=== PATIENT | female | born 1995 | race Two or more races ===

== ENCOUNTER 2018-09-15 07:13 | Emergency (ER) | payer OTHER ==
[~2018-09-15] VITALS: Ht 149.9 cm; Wt 62.6 kg
== END 2018-09-15 16:28 | disposition home or self-care (01) ==
LOC: ER 07:13
DX: K52.9 Noninfective gastroenteritis and colitis, unspecified (principal)

== ENCOUNTER 2018-12-27 08:28 | Outpatient (CLI) | payer OTHER | END 2018-12-27 15:00 | disposition home or self-care (01) | LOC: LAB 08:28 | DX: D68.0 Von Willebrand disease (principal); K82.8 Other specified diseases of gallbladder; D50.8 Other iron deficiency anemias; D51.8 Other vitamin B12 deficiency anemias; I10 Essential (primary) hypertension; D68.8 Other specified coagulation defects ==

== ENCOUNTER → 2018-12-27 | Outpatient (CLI) | payer OTHER | END | disposition home or self-care (01) | LOC: NUCLEAR 09:00 | DX: D68.0 Von Willebrand disease (principal); K82.9 Disease of gallbladder, unspecified | CPT/HCPCS: 78227; A9537 ==

== ENCOUNTER 2019-03-18 04:20 | Emergency (ER) | payer OTHER ==
[~2019-03-18] VITALS: Ht 149.9 cm; Wt 63.5 kg
[2019-03-18] MEDS ORDERED: PEPCID40 MG PO (07:37)
[2019-03-18] MEDS ORDERED: METOCLOPRAMIDE10 M1 PO (07:37)
== END 2019-03-18 07:45 | disposition home or self-care (01) ==
LOC: ER 04:20
DX: K29.70 Gastritis, unspecified, without bleeding (principal)

== ENCOUNTER 2019-07-01 08:39 | Outpatient (CLI) | payer OTHER ==
[~2019-07-01 08:39] MED LIST: METOCLOPRAMIDE10 M1 PO; PEPCID40 MG PO
== END 2019-07-01 09:01 | disposition home or self-care (01) ==
LOC: LAB 08:39
DX: D50.8 Other iron deficiency anemias (principal); I10 Essential (primary) hypertension; D68.8 Other specified coagulation defects; D69.1 Qualitative platelet defects; K82.A2 Perforation of gallbladder in cholecystitis; D51.3 Other dietary vitamin B12 deficiency anemia